=== PATIENT | female | born 1990 | race Two or more races ===

== ENCOUNTER 2016-11-01 18:12 | Outpatient (CLI) | payer OTHER ==
[2016-11-01 18:48] VITALS: BMI 31.1
[2016-11-01] MEDS ORDERED: PROMETHAZINE HCL 25 MG/ML VIAL IM ONE (22:04)
[2016-11-01] MEDS ORDERED: MORPHINE SULFATE 10 MG/ML SYRINGE IM ONE (22:06)
== END 2016-11-01 23:04 | disposition home or self-care (01) ==
LOC: FBC 18:12 → FBCOUT 18:12
PROVIDERS: ATTEND Family Medicine
DX: O47.9 False labor, unspecified (principal); Z3A.00 Weeks of gestation of pregnancy not specified
CPT/HCPCS: 96372; 59025; 81002; J2270; J2550; G0463

== ENCOUNTER 2016-11-02 06:47 | Inpatient (IN) | payer OTHER ==
[2016-11-02] MEDS ORDERED: OXYTOCIN IN LR 500 ML IV ONE ×2 (08:53→09:15)
[2016-11-02] MEDS ORDERED: IV START KIT ONE (09:14)
[2016-11-02] MEDS ORDERED: LIDOCAINE Viscous 2% 15 ML UDCUP ONE (09:15)
[2016-11-02] MEDS ORDERED: OXYTOCIN 10 UNITS/ML VIAL ONE ×4 (09:15→23:14)
[2016-11-02] MEDS ORDERED: MINERAL OIL 25 ML BOT ONE (09:15)
[2016-11-02] MEDS ORDERED: LACTATED RINGERS 1,000 ML ONE ×2 (09:15→10:14)
[2016-11-02] MEDS: LACTATED RINGERS 1,000 ML IV SCH ×5 (09:15→17:58)
[2016-11-02] MEDS ORDERED: PUMP TUBING ONE (09:15)
[2016-11-02] MEDS ORDERED: LIDOCAINE 1% (PRES FREE) 30 ML VIAL ONE (09:15)
[2016-11-02 10:05] LABS: HEMATOCRIT 38.8 % (37.0-47.0); HEMOGLOBIN 13.4 gm/l (12.0-16.0); MEAN CELL VOLUME 89.8 fl (81.0-99.0); MEAN CORPUSCULAR HGB CONC 34.5 g/dl (33.0-37.0); RED CELL DISTRIBUTION WIDTH 13.2 % (11.5-14.5)
[2016-11-02] MEDS ORDERED: FENTANYL/ROPIVACAINE EPIDURAL 250 ML EP ONE (10:13)
[2016-11-02] MEDS ORDERED: EPIDURAL PUMP SET ONE (10:13)
[2016-11-02] MEDS ORDERED: FENTANYL 100 MCG/2 ML VIAL ONE ×2 (10:26→22:07)
[2016-11-02] MEDS ORDERED: LIDOCAINE 2% (PRES FREE) 5 ML VIAL ONE (10:27)
[2016-11-02] MEDS ORDERED: EPIDURAL PROCEDURE TRAY ONE (10:27)
[2016-11-02] MEDS ORDERED: SODIUM CHLORIDE 0.9% 500 ML IV PRN (10:43)
[2016-11-02] MEDS ORDERED: EPHEDRINE SULFATE 50 MG/ML 1ML VIAL IV PRN (10:43)
[2016-11-02] MEDS ORDERED: METOCLOPRAMIDE HCL 5 MG/ML 2ML VIAL IV PRN (10:43)
[2016-11-02] MEDS ORDERED: LACTATED RINGERS 500 ML IV PRN (10:43)
[2016-11-02] MEDS ORDERED: DIPHENHYDRAMINE HCL 50 MG/1 ML VIAL IV PRN ×2 (10:43→23:32)
[2016-11-02] MEDS ORDERED: NALBUPHINE HCL 20 MG/ML AMP IV PRN (10:43)
[2016-11-02] MEDS ORDERED: ONDANSETRON 4 MG/2ML 2 ML VIAL IV PRN ×2 (10:43→23:32)
[2016-11-02] MEDS ORDERED: NALOXONE HCL 0.4 MG/ML VIAL IV PRN (10:43)
[2016-11-02] MEDS ORDERED: LACTATED RINGERS 1,000 ML IV SCH ×3 (10:43→22:00)
[2016-11-02] MEDS: FENTANYL/ROPIVACAINE EPIDURAL 250 ML EP SCH (10:45)
--- NOTE | 2016-11-02 11:48 | PDOC36 ---
Provider Note Note: cc: Admission H&P HPI: 26 y.o. year old OLGA 11/08/2016, by Last Menstrual Period at 39w1d who has been [place] for the past 48 hours. The contractions have increased in frequency and intensity over the last 12 hours and she is making cervical change. REVIEW OF SYSTEMS GENERAL:~ No fever or headache EYES:~ No double or blurry vision. CARDIOVASCULAR:~ No chest pain. RESPIRATORY:~ No severe shortness of breath or cough. GASTROINTESTINAL:~ No nausea or vomiting or right upper quadrant pain.~ PSYCHIATRIC:~ No anxiety or depression. PROBLEMS Normal Term OB HISTORY #: 1, Date: 06/2015, Sex: None, Weight: None, GA: 8w0d, Delivery: None, Apgar1: None, Apgar5: None, Living: None, Comments: Pt. stated had D&C @ ER #: 2, Current PSH Cyst Removal Appendectomy Endometrial Ablation SOC HX Reports that she has never smoked. She has never used smokeless tobacco. She reports that she drinks alcohol. She reports that she does not use illicit drugs. ALL No Known Allergies MEDICATIONS ~ 27-0.8 MG tablet, TAKE 1 TABLET BY MOUTH DAILY, Disp: 100 each, Rfl: 3 ~ Spacer/Aero-Holding Chambers (VALVED HOLDING CHAMBER) device, , Disp: , Rfl:~ ~ VENTOLIN HFA 108 (90 BASE) MCG/ACT inhaler, , Disp: , Rfl:~ PHYSICAL EXAMINATION VITAL SIGNS:~ Estimated body mass index is 31.18 Total weight gain is 9.163 kg (20 lb 3.2 oz) FHT:~ 135 [place]:~ 130s moderate variability positive accels no decels category I reassuring SVE:~ 4-5/90/-2 GENERAL:~ No distress CARDIOVASCULAR:~ Regular rate and rhythm, no murmur, JVD or pedal edema. RESPIRATORY:~ Clear to auscultation bilaterally, respiratory effort is nonlabored at rest. GASTROINTESTINAL:~ Gravid no fundal tenderness NEUROLOGIC:~ Deep tendon reflexes are 2+ in the knees.~ Cranial nerves II-XII are grossly intact. PSYCHIATRIC:~ Alert and oriented x3, judgement and memory is intact, mood is pleasant. LABS & STUDIES O+ Antibody- Rubella Immune Hep B- HIV- GC/Chlamydia- Trep- Hgb 13.3 GBS Neg ULTRASOUNDS 21 wk - c/w lmp. male. normal survey and fluid. Grade 1 ant placenta, no previa. ASSESSMENT 26 y.o. year old OLGA 11/08/2016, by Last Menstrual Period at 39w1d in labor PLAN Labor Admit for expectant management. Jeffery Harden MD MPH
[2016-11-02] MEDS: OXYTOCIN IN LR 500 ML IV PRN ×5 (12:08→20:59)
[2016-11-02 12:25] VITALS: BMI 31.5
--- NOTE | 2016-11-02 13:19 | PDOC36 ---
Provider Note Note: SUBJECTIVE: Strip note Pt comfortable, sleeping since she had an epidural. OBJECTIVE: VS: AFVSS FHT: 130s moderate variability positive accels no decels cat I [place]: q2-4 min SVE: DNE ASSESSMENT: 26 y.o. year old OLGA 11/08/2016, by Last Menstrual Period at 39w1d in labor PLAN: Pt more comfortable now with epidural, had to start pitocine bc of decrease in contractions but now more regular. Will continue expectant management.
[2016-11-02] MEDS ORDERED: ROPIVACAINE 0.5% 30 ML VIAL ONE (16:26)
--- NOTE | 2016-11-02 17:35 | PDOC36 ---
Provider Note Note: SUBJECTIVE: Had to rebolus the epidural, patient had a hot spot on the right leg, better now. OBJECTIVE: VS: AFVSS FHT: 140s moderate variability, positive accels, positive variable decelerations , Category II [place]: q2-3 minutes SVE: /0 ASSESSMENT: I am getting ready to submit my documents, for review but am unsure how to show that I have deposited all of $50,000 from the last installment. So far I have PLAN: Patient complete at 0 station will try a trial of pushing and see if she brings the head down at all. Will followup in about 30 minutes.
--- NOTE | 2016-11-02 21:48 | PDOC1 ---
- HPI cc: Admission H&P HPI: 26 y.o. year old OLGA 11/08/2016, by Last Menstrual Period at 39w1d who has been in labor for the past 48 72 hours. She dilated to complete throughout the day and pushed for 2 hours. She brought the head down to 1+ station but was unable to bring it down farther, we rested her in hopes that she would labor down more and then pushed for another 30 minutes without any better results. REVIEW OF SYSTEMS GENERAL:~ No fever or headache EYES:~ No double or blurry vision. CARDIOVASCULAR:~ No chest pain. RESPIRATORY:~ No severe shortness of breath or cough. GASTROINTESTINAL:~ No nausea or vomiting or right upper quadrant pain.~ PSYCHIATRIC:~ No anxiety or depression. PROBLEMS Normal Term OB HISTORY #: 1, Date: 06/2015, Sex: None, Weight: None, GA: 8w0d, Delivery: None, Apgar1: None, Apgar5: None, Living: None, Comments: Pt. stated had D&C @ ER #: 2, Current PSH Cyst Removal Appendectomy Endometrial Ablation SOC HX Reports that she has never smoked. She has never used smokeless tobacco. She reports that she drinks alcohol. She reports that she does not use illicit drugs. ALL No Known Allergies MEDICATIONS ~ 27-0.8 MG tablet, TAKE 1 TABLET BY MOUTH DAILY, Disp: 100 each, Rfl: 3 ~ Spacer/Aero-Holding Chambers (VALVED HOLDING CHAMBER) device, , Disp: , Rfl:~ ~ VENTOLIN HFA 108 (90 BASE) MCG/ACT inhaler, , Disp: , Rfl:~ PHYSICAL EXAMINATION VITAL SIGNS:~ Estimated body mass index is 31.18 Total weight gain is 9.163 kg (20 lb 3.2 oz) FHT:~ 160s minimum to moderate variability with accels and variable decels category II [place]:~ contractions every 2-3 minutes SVE:~ complete GENERAL:~ No distress CARDIOVASCULAR:~ Regular rate and rhythm, no murmur, JVD or pedal edema. RESPIRATORY:~ Clear to auscultation bilaterally, respiratory effort is nonlabored at rest. GASTROINTESTINAL:~ Gravid no fundal tenderness NEUROLOGIC:~ Deep tendon reflexes are 2+ in the knees.~ Cranial nerves II-XII are grossly intact. PSYCHIATRIC:~ Alert and oriented x3, judgement and memory is intact, mood is pleasant. LABS & STUDIES O+ Antibody- Rubella Immune Hep B- HIV- GC/Chlamydia- Trep- Hgb 13.3 GBS Neg ULTRASOUNDS 21 wk - c/w lmp. male. normal survey and fluid. Grade 1 ant placenta, no previa. ASSESSMENT 26 y.o. year old OLGA 11/08/2016, by Last Menstrual Period at 39w1d in labor with failure to progress. PLAN Failure to Progress: 26 y.o. year old OLGA 11/08/2016, by Last Menstrual Period at 39w1d who has been in labor for the past 48 72 hours. She dilated to complete throughout the day and pushed for 2 hours. She brought the head down to 1+ station but was unable to bring it down farther, we rested her in hopes that she would labor down more and then pushed for another 30 minutes without any better results. We discussed a section and the patient has agreed to this. I reviewed the risks, benefits and alternatives of a section with the patient. She understands the risk of bleeding (she states that she would accept blood products if medically necessary and consent was obtained after counseling), infection (wound infection - possibly leading to wound dehiscence, or pelvic infection) and damage to surrounding organs/tissues (including, but not limited to, bladder, bowel, ureters, uterus, ovaries/tubes, blood vessels and nerves). She understands that any of the above could necessitate further treatment or surgeries. Patient understands and agrees, all questions were answered Jeffery Harden MD MPH SOCIAL HISTORY: Marital status: [], FOB involved: [], No Tobacco, alcohol use, or drug use. FAMILY HISTORY: No congenital abnormalities or twins. Allergies/Adverse Reactions: Allergies No Known Allergies Allergy (Verified 11/01/16 18:48) per ED report - Labs & Studies LABS: Blood Type-[], Antibody [NEG], Rubella [Immune], RPR-[Negative], HbsAg-[Negative], HIV-[Negative] Pap [], GC/Chlamydia-[Negative], UA-[Negative], Quad/Integrated Screen-[Negative], 1 hr GTT-[], 3 hr GTT [], GBS-[] REVIEW OF DATES: LMP []/[]/[] -> OLGA []/[]/[] Ultrasound on []/[] @ [] []/7 WGA -> EDC []/[]/[] Ultrasound on []/[] @ [] []/7 WGA -> EDC []/[]/[] - Assessment & Plan 20 y/o G[] P[] at []-[]/7 weeks by [LMP] who will present for schedule repeat LTCS. Discussed with patient the risks of including infection, bleeding possibly requiring blood transfusion and even hysterectomy, damage to underlying structures including bowel, bladder, uterus, tubes, ovaries, baby, and ureter, as well as will have a scar and can have persistent pain and numbness at incision site. The patient agrees to proceed with LTCS and will arrive at scheduled time for preop. She was advised to avoid any food or drink 8 hours prior to scheduled surgery.
[2016-11-02] MEDS ORDERED: CEFAZOLIN SODIUM 2 GRAM DUPLEX 2 G in Premix (D5W) 50 ml 1 EACH IV PRN (21:49)
[2016-11-02] MEDS ORDERED: ROPIVACAINE 0.75% 20 ML AMP ONE (21:56)
[2016-11-02] MEDS ORDERED: CEFAZOLIN SODIUM 2 GRAM DUPLEX 50 ML IV ONE (22:10)
[2016-11-02] MEDS ORDERED: DIPHENHYDRAMINE HCL 50 MG/1 ML VIAL ONE (22:39)
[2016-11-02] MEDS ORDERED: ONDANSETRON 4 MG/2ML 2 ML VIAL ONE (22:39)
[2016-11-02] MEDS ORDERED: MORPHINE SULFATE (DURAMORPH) 1 MG/ML 10ML AMP ONE (22:40)
[2016-11-02] MEDS ORDERED: LANOLIN 50 APPLIC/7G TUBE TP PRN (23:32)
[2016-11-02] MEDS ORDERED: DIPHENHYDRAMINE HCL 25 MG CAPSULE PO PRN (23:32)
[2016-11-02] MEDS ORDERED: OXYCODONE HCL 5 MG TABLET PO PRN (23:32)
[2016-11-02] MEDS ORDERED: IBUPROFEN 800 MG TABLET PO PRN (23:32)
[2016-11-02] MEDS ORDERED: D5LR 1,000 ML IV SCH (23:45)
[2016-11-03] MEDS ORDERED: ONDANSETRON 4 MG/2ML 2 ML VIAL IV PRN (00:30)
[2016-11-03] MEDS ORDERED: DIPHENHYDRAMINE HCL 50 MG/1 ML VIAL IV PRN (00:30)
[2016-11-03] MEDS ORDERED: NALOXONE HCL 0.4 MG/ML VIAL IV PRN (00:30)
[2016-11-03] MEDS ORDERED: EPHEDRINE SULFATE 50 MG/ML 1ML VIAL IV PRN (00:30)
[2016-11-03] MEDS ORDERED: NALBUPHINE HCL 20 MG/ML AMP IV PRN (00:30)
[2016-11-03] MEDS ORDERED: PROMETHAZINE HCL 25 MG/ML VIAL IM PRN (00:30)
[2016-11-03] MEDS ORDERED: LACTATED RINGERS 1,000 ML ONE (00:33)
[2016-11-03] MEDS: LACTATED RINGERS 1,000 ML IV SCH ×2 (00:53→17:53)
--- NOTE | 2016-11-03 01:40 | PDOC37 ---
Note:: DATE OF PROCEDURE 10/02/16 PREOPERATIVE DIAGNOSES Term Failure to Progress POSTOPERATIVE DIAGNOSES Same PROCEDURE Primary Low Transverse Section SURGEON Jeffery Harden MD SIDER MECHANIC Omer Fuentes MD ANESTHESIA Epidural COMPLICATIONS None ESTIMATED BLOOD LOSS 700 ml URINE OUTPUT 600 ml IV FLUIDS 2300 ml START TIME 22:34 IMPLANTS None SPECIMENS None BRIEF HISTORY 26 y.o. year old OLGA 11/08/2016, by Last Menstrual Period at 39w1d who has been in labor for the past 48 72 hours. She dilated to complete throughout the day and pushed for 2 hours. She brought the head down to 1+ station but was unable to bring it down farther, we rested her in hopes that she would labor down more and then pushed for another 30 minutes without any better results. We discussed a section and the patient has agreed to this. FINDINGS Normal tubes, ovaries and uterus OPERATIVE NOTE Verbal and written informed consent was obtained. The patient was taken to the operating room where epidural anesthesia was found to be adequate.~ She was then placed in the dorsal supine position with a leftward tilt and prepped and draped in a sterile fashion.~ Surgical timeout was performed confirming the patient's name, date of , surgical procedure to be performed and any concerns from team members.~ A Pfannenstiel skin incision was then made with the scalpel and carried through to the underlying layer of fascia.~ The fascia was incised in the midline and the incision extended laterally with the Russ scissors.~ The superior aspect of the fascial incision was then grasped with Francisca clamps, elevated and the underlying rectus muscles dissected off bluntly and with Russ scissors.~ Attention was then turned to the inferior aspect of this incision, which in similar fashion was grasped, tented up with Francisca clamps, and the rectus muscle dissected of bluntly with Russ scissors.~ The rectus muscles were then bluntly in the midline, and the peritoneum identified, tented up, and entered sharply with Metzenbaum scissors. ~ The peritoneal incision was then extended superiorly and inferiorly with good visualization of the bladder. The visceroperitoneum was grasped with smooth pickups, entered with Metzenbaum scissors, and extended laterally. A bladder flap was created by gentle blunt dissection and placed behind the bladder blade. The lower uterine segment was then incised in a transverse fashion with the scalpel.~ The uterine incision was then bluntly extended revealing the amniotic sac which was ruptured with clear fluid.~ The infant's head was grasped, flexed and elevated to level of the hysterotomy and the head was then delivered atraumatically.~ The mouth and nose were bulb suctioned and the cord clamped and cut.~ The was handed off to the waiting resuscitation team.~ Cord gases were not required. The placenta was then removed via cord traction and fundal massage; the uterus was exteriorized and was cleared of all clots and debris.~ The uterine incision was repaired with 0 Vicryl in a running, locked fashion.~ The second layer was imbricated with 0 Vicryl in a running fashion.~~~ Hemostasis was checked and areas of bleeding were repaired with figure of eight stitches using 0 Vicryl and the Bovie. The uterus was internalized and the gutters were cleared of all clots.~ Hemostasis was carefully checked and found to be satisfactory.~ The fascia was reapproximated with 0 Vicryl in a running fashion.~ Bleeding points were Bovie coagulated. The subcutaneous tissue was reapproximated with 0 plain and the skin was closed subcutaneously using 4-0 monocryl with a subcuticular stitch.~ A sterile dressing was placed. The patient tolerated the procedure well.~ Sponge, lap and needle counts were correct times two. The patient was taken to the recovery room in stable condition.
[2016-11-03] MEDS: HYDROMORPHONE HCL 1 MG/ML SYRINGE IV PRN ×2 (05:50→05:59)
[2016-11-03 06:31] LABS: HEMATOCRIT 33.5 % (37.0-47.0); HEMOGLOBIN 11.2 gm/l (12.0-16.0)
[2016-11-03] MEDS: HYDROCODONE/ACETAMINOPHEN 5/325MG TABLET PO PRN ×4 (08:35→22:00)
[2016-11-03] MEDS: PRENATAL VIT/FE FUMARATE/FA 1 TABLET PO SCH (11:06)
[2016-11-03] MEDS: DOCUSATE SODIUM 100 MG CAPSULE PO SCH ×2 (11:06→21:59)
--- NOTE | 2016-11-03 11:29 | PDOC44 ---
- Subjective Day: 1 Reports (Pain moderately controlled. Denies dizziness, SOB, palpitations.), Reports Lochia Light, Reports Tolerating Clear Liquids, Denies Flatus, Denies Nausea, Denies Vomiting - Objective Temp Pulse Resp BP Pulse Ox 97.9 F 107 18 110/53 97 11/03/16 08:16 11/03/16 08:16 11/03/16 08:16 11/03/16 08:16 11/03/16 05:45 Lab Results 11/03/16 06:25 Hgb 11.2 L D Hct 33.5 L Current Medications Generic Name Dose Route Start Last Admin Trade Name Freq PRN Reason Stop Dose Admin Acetaminophen/Hydrocodone Bitart 1 - 2 tab 11/02/16 23:32 11/03/16 11:06 [place] 5/325 PO 1 tab Q4H PRN Administration Pain (Moderate) Diphenhydramine HCl 25 - 50 mg 11/02/16 23:32 Benadryl PO Q6H PRN Itching (Mild/Moderate) Diphenhydramine HCl 25 - 50 mg 11/02/16 23:32 Benadryl IV Q6H PRN Itching (Severe) Diphenhydramine HCl 25 - 50 mg 11/03/16 00:30 Benadryl IV 11/03/16 23:15 Q4H PRN Itching Docusate Sodium 100 mg 11/03/16 09:00 11/03/16 11:06 Colace PO 100 mg BID ROMA Administration Emollient Ointment 1 applic 11/02/16 23:32 [id number] TP PRN PRN sore nipples Ephedrine Sulfate 5 - 10 mg 11/03/16 00:30 Ephedrine Sulfate IV 11/03/16 23:15 Q5M PRN Hydromorphone HCl 0.25 - 0.5 mg 11/03/16 00:20 11/03/16 05:59 Dilaudid IV 11/03/16 23:15 0.5 mg .Q5MIN PRN Administration Pain (Breakthrough) Lactated Ringer's 1,000 mls @ 125 mls/hr 11/03/16 01:00 11/03/16 00:53 Lactated Ringers IV 125 mls/hr .Q8H ROMA Administration Ibuprofen 800 mg 11/02/16 23:32 11/03/16 08:35 Motrin PO 800 mg Q6H PRN Administration Pain Multivi/Iron Carb/Fe Sulf/FA/Prenat 1 tab 11/03/16 09:00 11/03/16 11:06 Plus PO 1 tab DAILY ROMA Administration Nalbuphine HCl 1 - 5 mg 11/03/16 00:30 Nubain IV 11/03/16 23:15 Q4H PRN Itching Naloxone HCl 0.2 - 0.4 mg 11/03/16 00:30 Narcan IV 11/03/16 23:15 Q5M PRN Ondansetron HCl 4 mg 11/02/16 23:32 Zofran IV Q6H PRN Nausea/Vomiting Ondansetron HCl 4 mg 11/03/16 00:30 Zofran IV 11/03/16 23:15 Q6H PRN Nausea/Vomiting Oxycodone HCl 5 - 10 mg 11/02/16 23:32 Roxicodone PO Q3H PRN Pain (Severe) Promethazine HCl 6.25 - 12.5 mg 11/03/16 00:30 Phenergan IM 11/03/16 23:15 Q4H PRN Nausea/Vomiting Sodium Chloride 10 ml 11/02/16 23:32 11/03/16 06:01 Normal Saline 10ml Flush IV 10 ml PRN PRN Administration IV Flush Sodium Chloride 10 ml 11/03/16 17:00 Normal Saline 10ml Flush IV Q8HR [facility] - Physical Exam General: Afebrile Psych/Mental Status: Mood/Affect Appropriate, Bonding Well Neurological: Grossly Intact, Alert HEENT: Atraumatic, EOMI Lungs: Clear to Auscultation Bilaterally, Normal Air Movement Cardiovascular: Regular Rate and Rhythm, Normal S1, Normal S2, No Murmur Fundus: Firm, Firm with Massage, Below Umbilicus Wound SLURRY PLANT OPERATOR: Dressing in Place, Dressing Clean/Dry/Intact - Problems:Assessment/Plan (1) Status post primary low transverse section Status: AcuteAssessment/Plan: POD#1, PLTCS for arrest of descent Mild tachycardia: likely 2/2 pain. Will schedule ibuprofen, encouraged pt to ask for pain meds before pain gets really strong Will ambulate today, dc bose once ambulating Tolerating clears, ADAT Hgb stable support for Disposition: Stable
[2016-11-03] MEDS: IBUPROFEN 800 MG TABLET PO SCH (16:33)
[2016-11-04] MEDS: IBUPROFEN 800 MG TABLET PO SCH ×4 (00:35→21:01)
[2016-11-04] MEDS: LACTATED RINGERS 1,000 ML IV SCH ×4 (09:31→21:06)
[2016-11-04] MEDS: DOCUSATE SODIUM 100 MG CAPSULE PO SCH (09:41)
[2016-11-04] MEDS: PRENATAL VIT/FE FUMARATE/FA 1 TABLET PO SCH (09:41)
--- NOTE | 2016-11-04 10:43 | PDOC44 ---
- Subjective Day: 2 Reports Flatus, Reports Pain Tolerable, Reports , Reports Lochia Light, Reports Tolerating Regular Diet, Denies Nausea, Denies Vomiting - Objective Temp Pulse Resp BP Pulse Ox 97.3 F 85 16 96/61 97 11/04/16 07:46 11/04/16 07:46 11/04/16 07:46 11/04/16 07:46 11/03/16 05:45 Current Medications Generic Name Dose Route Start Last Admin Trade Name Freq PRN Reason Stop Dose Admin Acetaminophen/Hydrocodone Bitart 1 - 2 tab 11/02/16 23:32 11/03/16 22:00 [place] 5/325 PO 2 tab Q4H PRN Administration Pain (Moderate) Diphenhydramine HCl 25 - 50 mg 11/02/16 23:32 Benadryl PO Q6H PRN Itching (Mild/Moderate) Diphenhydramine HCl 25 - 50 mg 11/02/16 23:32 Benadryl IV Q6H PRN Itching (Severe) Docusate Sodium 100 mg 11/03/16 09:00 11/04/16 09:41 Colace PO 100 mg BID ROMA Administration Emollient Ointment 1 applic 11/02/16 23:32 [id number] TP PRN PRN sore nipples Lactated Ringer's 1,000 mls @ 125 mls/hr 11/03/16 01:00 11/04/16 09:31 Lactated Ringers IV Not Given .Q8H ROMA Ibuprofen 800 mg 11/03/16 11:30 11/04/16 08:41 Motrin PO 800 mg Q8H ROMA Administration Multivi/Iron Carb/Fe Sulf/FA/Prenat 1 tab 11/03/16 09:00 11/04/16 09:41 Plus PO 1 tab DAILY ROMA Administration Ondansetron HCl 4 mg 11/02/16 23:32 Zofran IV Q6H PRN Nausea/Vomiting Oxycodone HCl 5 - 10 mg 11/02/16 23:32 Roxicodone PO Q3H PRN Pain (Severe) Sodium Chloride 10 ml 11/02/16 23:32 11/03/16 13:39 Normal Saline 10ml Flush IV 10 ml PRN PRN Administration IV Flush Sodium Chloride 10 ml 11/03/16 17:00 11/04/16 09:32 Normal Saline 10ml Flush IV Not Given Q8HR ROMA - Physical Exam General: Afebrile, No Acute Distress Psych/Mental Status: Mood/Affect Appropriate, Bonding Well Neurological: Alert, Oriented x 4 Lungs: Clear to Auscultation Bilaterally Cardiovascular: Regular Rate and Rhythm Breast: Nipples Intact Fundus: Firm, Midline Extremities: Full ROM, No Edema, No Tenderness Skin: Normal Color, Warm, Dry, Intact, No Rash Wound CUSTOMER SUPPORT COORDINATOR: Dressing Clean/Dry/Intact, Well Approximated - Problems:Assessment/Plan (1) Status post primary low transverse section Status: AcuteAssessment/Plan: POD#2, PLTCS for arrest of descent ADAT Hgb stable support for d/c tomorrow Disposition: Anticipate DC Home Tomorrow
[2016-11-04] MEDS: HYDROCODONE/ACETAMINOPHEN 5/325MG TABLET PO PRN (13:53)
[2016-11-04] MEDS: FENTANYL/ROPIVACAINE EPIDURAL 250 ML EP SCH (21:02)
[2016-11-05] MEDS: LACTATED RINGERS 1,000 ML IV SCH (03:05)
[2016-11-05] MEDS: IBUPROFEN 800 MG TABLET PO SCH (05:29)
[2016-11-05] MEDS: DOCUSATE SODIUM 100 MG CAPSULE PO SCH ×2 (06:23→09:46)
[2016-11-05 07:48] VITALS: BP 111/57
[2016-11-05] MEDS: PRENATAL VIT/FE FUMARATE/FA 1 TABLET PO SCH (09:46)
--- NOTE | 2016-11-05 11:29 | PDOC39B ---
Hospital Course: ADMIT DATE: 11/02/16 DISCHARGE DATE: 11/05/16 ADMISSION DIAGNOSES: Active labor IUP at 39w1d PROCEDURES: LTCS HISTORY OF PRESENT ILLNESS: 26 y.o. year old OLGA 11/08/2016, by Last Menstrual Period at 39w1d who was admitted in active labor. HOSPITAL COURSE: She dilated to complete throughout the day and pushed for 2 hours. She brought the head down to 1+ station but was unable to bring it down farther. She was then counseled on pLTCS for delivery and underwent that procedure without any complications. By day of discharge the patient is ambulating, eating, voiding, and passing flatus without difficulty. Pain is controlled and lochia is appropriate. She is breast feeding well. - Physical Exam Vital Signs: Temp Pulse Resp BP Pulse Ox 96.8 F 71 16 111/57 97 11/05/16 07:42 11/05/16 07:42 11/05/16 07:42 11/05/16 07:42 11/03/16 05:45 General: Afebrile, No Acute Distress Neurological: Alert, Oriented x 4 Lungs: Clear to Auscultation Bilaterally Cardiovascular: Regular Rate and Rhythm Fundus: Firm, Midline Extremities: Full ROM, No Edema Skin: Normal Color, Warm, Dry, Intact, No Rash Wound: Dressing Clean/Dry/Intact, Well Approximated - Discharge Diagnosis (1) Status post primary low transverse section Status: AcuteAssessment/Plan: POD#3, PLTCS for arrest of descent ADAT Hgb stable support for d/c today - Discharge Plan Condition: Good Disposition: Home Prescriptions: Docusate Sodium [COLACE 100 MG CAPSULE ([facility])] 100 mg PO BID #60 capsule Ibuprofen [IBUPROFEN 800 MG TABLET ([facility])] 800 mg PO Q8H #60 tablet Lanolin [LANOLIN 7 G TUBE ([facility])] 1 applic TP PRN PRN #10 tube PRN Reason: Sore Nipples Oxycodone HCl [ROXICODONE 5 MG IR TABLET ([facility])] 5 - 10 mg PO Q3H PRN #20 tablet PRN Reason: Pain (Severe) Follow-Up: Izabela Martines FNP [Referring] - In 7-10 days
== END 2016-11-05 12:52 | disposition home or self-care (01) | DRG 765 ==
LOC: FBC 06:47 → FBCOUT 06:47 → FBC 08:49
PROVIDERS: ADMIT Family Medicine; ATTEND Family Medicine
PROC: 00HU33Z Insertion of Infusion Device into Spinal Canal, Percutaneous Approach (ICD-10-PCS; 2016-11-02)
PROC: 10D00Z1 Extraction of Products of Conception, Low, Open Approach (ICD-10-PCS; principal; 2016-11-03)
DX: O64.8XX0 Obstructed labor due to other malposition and malpresentation, not applicable or unspecified (principal); O99.43 Diseases of the circulatory system complicating the puerperium; R00.0 Tachycardia, unspecified; O76 Abnormality in fetal heart rate and rhythm complicating labor and delivery; Z3A.39 39 weeks gestation of pregnancy; Z37.0 Single live birth